=== PATIENT | female | born 1965 | race Caucasian/White ===

== ENCOUNTER 2019-11-11 06:44 | Day surgery (SDC) | payer OTHER ==
[2019-11-11] MEDS ORDERED: Sodium Chloride 0.9% 10 ML Syringe FLUSH PRN (06:45)
[2019-11-11] MEDS ORDERED: Lactated Ringers 1,000 ML IV SCH (06:45)
[2019-11-11] MEDS ORDERED: Propofol 200 MG/20 ML SDV IV ONE (06:45)
[2019-11-11] MEDS ORDERED: Simethicone Drops 40 MG/0.6 ML 30 ML Bottle ONE (08:06)
--- NOTE | 2019-11-11 08:18 | PCM.OPNOTE ---
- General Post-Op/Procedure Note Date of Surgery/Procedure: 11/11/19 Operative Procedure(s): c scope Findings: nl exam Pre Op Diagnosis: colon cancer screening Post-Op Diagnosis: Same Anesthesia Technique: MAC Primary Surgeon: Kong Cullen Anesthesia Provider: Jose Jay Pathology: none Complications: None Condition: Good Free Text/Narrative:: see dictation
[2019-11-11 08:55] VITALS: BP 132/92; PULSE 59
--- NOTE | 2019-11-11 14:55 | OR ---
DATE OF OPERATION: 11/11/2019 SURGEON: Kong Cullen MD PROCEDURE PERFORMED: Colonoscopy. PREOPERATIVE DIAGNOSIS: Colon cancer screening. POSTOPERATIVE DIAGNOSIS: Colon cancer screening. INDICATIONS FOR PROCEDURE: This is a 53-year-old white female presenting for a screening colonoscopy. She does have a family history of colon cancer. She is otherwise asymptomatic. DESCRIPTION OF OPERATION: After an excellent IV sedation was administered, digital rectal exam was performed. No marked abnormality was noted. The flexible colonoscope was inserted and advanced to the cecum. Prep was excellent. Following findings were noted: Ascending colon, unremarkable. Transverse colon, unremarkable. Descending colon, unremarkable. Sigmoid and rectum, unremarkable. Colon was deflated. Scope was removed. The patient tolerated the procedure well, was taken to Recovery. RECOMMENDATIONS: Repeat colonoscopy in 10 years. /[id number] /[id number]
== END 2019-11-11 09:15 | disposition home or self-care (01) ==
LOC: FB.SDS 06:44
PROVIDERS: ATTEND Surgery
DX: Z12.11 Encounter for screening for malignant neoplasm of colon (principal); I10 Essential (primary) hypertension; F41.8 Other specified anxiety disorders; E66.3 Overweight; Z88.1 Allergy status to other antibiotic agents; Z88.8 Allergy status to other drugs, medicaments and biological substances; Z80.0 Family history of malignant neoplasm of digestive organs; Z79.899 Other long term (current) drug therapy; Z68.29 Body mass index [BMI] 29.0-29.9, adult
CPT/HCPCS: 00812; 45378; A9270; J2704; J7120

== ENCOUNTER 2020-07-10 17:44 | Emergency (ER) | payer OTHER ==
[2020-07-10] MEDS ORDERED: Diphtheria,Pertussis(Acell),Tetanus Vaccine 0.5 ML Syringe IM ONE (18:29)
[2020-07-10] MEDS ORDERED: Amoxicillin/Clavulanate K 500-125 MG Tab PO ONE (19:04)
--- NOTE | 2020-07-10 19:07 | EDM.PDOC ---
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 last Td unknown using a small serrated knife to pry a pit from an avocado, knife entered L index finger parallel to skin - Related Data Allergies Allergy/AdvReac Type Severity Reaction Status Date / Time ELIANA Inhibitors Allergy Edema Verified 03/07/15 07:12 doxycycline Allergy Rash Verified 03/07/15 07:12 Vukjqoy-Fjc-Agl Reductase Allergy Other Verified 03/07/15 07:12 Inhibitor Home Meds: Home Meds Citalopram [Citalopram HBr] 20 mg PO DAILY 03/04/15 [History] Losartan/Hydrochlorothiazide [Hyzaar 100-12.5 Tablet] 1 each PO DAILY 03/04/15 [History] Fluocinonide [Lidex 0.05% Oint] 1 applic TOP BID PRN 11/10/19 [History] [place]-3/DHA/Epa/Fish Oil [[place] 3 500 Softgel] 1,000 mg PO DAILY 11/10/19 [History] estradioL [Estrace] 0.5 mg PO DAILY 11/10/19 [History] Amoxicillin/Potassium Clav [Amox-Clav 500-125 mg Tablet] 1 each PO BID #10 tablet 07/10/20 [Rx] Past Medical History HEENT History: Reports: None Cardiovascular History: Reports: Hypertension Respiratory History: Reports: None Genitourinary History: Reports: None 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 Cardiovascular Surgical History: Reports: None GI Surgical History: Reports: Colonoscopy Female Surgical History: Reports: Hysterectomy Endocrine Surgical History: Reports: None Neurological Surgical History: Reports: None Musculoskeletal Surgical History: Reports: None Oncologic Surgical History: Reports: None Social & Family History - Caffeine Use Caffeine Use: Reports: Coffee ED ROS GENERAL - Review of Systems Review Of Systems: See Below Constitutional: Reports: No Symptoms HEENT: Reports: No Symptoms Respiratory: Reports: No Symptoms Cardiovascular: Reports: No Symptoms Endocrine: Reports: No Symptoms GI/Abdominal: Reports: No Symptoms : Reports: No Symptoms Musculoskeletal: Reports: No Symptoms Skin: Reports: Wound Neurological: Reports: No Symptoms Psychiatric: Reports: No Symptoms Hematologic/Lymphatic: Reports: No Symptoms Immunologic: Reports: No Symptoms ED EXAM, SKIN/RASH Exam: See Below Exam Limited By: No Limitations General Appearance: Alert, WD/WN, No Apparent Distress Respiratory/Chest: No Respiratory Distress Cardiovascular: Regular Rate, Rhythm Extremities: Other (L index finger with 1.2 cm lac on volar aspect, parallel to MCP and 4 mm proximal, into fat later, tendon exposed, sheath intact, tendon intact, FROM, curves onto medial aspect however sensation intact b/l, no fb, no evidence of joint violation, 1% lido without local with #30 needle) Neurological: Alert, Oriented, CN II-XII Intact, Normal Cognition, No Motor/Sensory Deficits Psychiatric: Normal Affect, Normal Mood Skin: Warm, Dry, Other (wound cleaned x 12 with gauze and NS, 3-0 Prolene interrupted x 3 for closure, good apposition margins with neutral hand position and joints slightly flexed) Course - Orders/Labs/Meds Orders: Active Orders 24 hr Category Date Time Status Vaccines to be Administered [RC] PER UNIT ROUTINE Care 07/10/20 18:29 Ordered Meds: Medications Discontinued Medications Generic Name Dose Route Start Last Admin Trade Name Ceasar PRN Reason Stop Dose Admin Diphtheria/Tetanus/Acell Pertussis 0.5 ml 07/10/20 18:29 Diphtheria,Pertussis(Acell),Tetanus Vaccine 0.5 Ml Syringe IM 07/10/20 18:30 .ONCE ONE - Re-Assessments/Exams Free Text/Narrative Re-Assessment/Exam: 07/10/20 19:16 repair without difficulty, no clinical evidence of injury to tendon/nerve/joint FROM, no tenderness or pain over soft tissues proximal or distal to lac dorsal padded 1" metal splint curved to a neutral position and placed over dressing TdaP given pt understands need to monitor closely and to avoid pressure or movement Departure - Departure Time of Disposition: 19:01 Disposition: Home, Self-Care 01 Condition: Good Clinical Impression: Laceration of finger of left hand Qualifiers: Encounter type: initial encounter Finger: index finger Foreign body presence: without foreign body - Discharge Information *PRESCRIPTION DRUG MONITORING PROGRAM REVIEWED*: Not Applicable *COPY OF PRESCRIPTION DRUG MONITORING REPORT IN PATIENT TODD: Not Applicable Prescriptions: Amoxicillin/Potassium Clav [Amox-Clav 500-125 mg Tablet] 1 each PO BID #10 tablet Instructions: Laceration Care, Adult Additional Instructions: Keep clean and dry and covered with a dressing and splint. Inspect wound daily. See a physician the same day for any increase in redness, swelling, pain, warmth, fever or drainage. To decrease risk of infection, take amoxicillin/clavulanate 500/125 mg 1 tab 2 times a day for 5 days. For pain, if needed, take ibuprofen 200 mg 3 tabs every [address] Viramontes in 5 days to remove sutures. - My Orders Last 24 Hours: My Active Orders 07/10/20 18:29 Vaccines to be Administered [RC] PER UNIT ROUTINE - Assessment/Plan Last 24 Hours: My Active Orders 07/10/20 18:29 Vaccines to be Administered [RC] PER UNIT ROUTINE
[2020-07-10 20:45] VITALS: BP 154/84; PULSE 66
== END 2020-07-10 19:20 | disposition home or self-care (01) ==
LOC: FB.ED 17:44
DX: S61.211A Laceration without foreign body of left index finger without damage to nail, initial encounter (principal); Z23 Encounter for immunization; Z88.1 Allergy status to other antibiotic agents; Z88.8 Allergy status to other drugs, medicaments and biological substances; I10 Essential (primary) hypertension; Z79.899 Other long term (current) drug therapy; W26.8XXA Contact with other sharp object(s), not elsewhere classified, initial encounter
CPT/HCPCS: 12001; 90471; 90715; 99282; A9270